=== PATIENT | female | born 1975 | race Caucasian/White ===

== ENCOUNTER 2023-06-02 20:51 | Emergency (ER) | payer MEDICAID ==
[~2023-06-02] VITALS: Ht 165.1 cm; Wt 68.0 kg
[2023-06-02 21:21] VITALS: BP 116/84; PULSE 91; RESP 16; TEMP 97.4; O2SAT 100
[2023-06-02] MEDS ORDERED: IBUP-2213 PO (23:22)
[2023-06-02] MEDS ORDERED: CEPH-588 PO (23:22)
[2023-06-02 23:37] VITALS: O2SAT 100
[2023-06-02] MEDS: KETOROLAC 60 MG/2 ML VIAL IM ONE (23:53)
== END 2023-06-02 23:51 | disposition home or self-care (01) ==
LOC: MED 20:51
DX: L03.213 Periorbital cellulitis (principal); R03.0 Elevated blood-pressure reading, without diagnosis of hypertension; Z88.5 Allergy status to narcotic agent
CPT/HCPCS: 81025; 96372; 99283; J1885